=== PATIENT | female | born 1995 | race Caucasian/White ===

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

== ENCOUNTER 2017-01-14 09:51 | Emergency (ER) | payer OTHER ==
[2017-01-14] MEDS ORDERED: MACR100C2 PO (10:59)
--- NOTE | 2017-01-14 11:00 | PD ---
HPI Chief Complaint Contractions Date Seen: Jan 14, 2017 Travel History International Travel<30 Days: No Contact w/Intl Traveler<30Days: No History of Present Illness HPI 21 year old at 34/0 weeks presents with contractions. Patient states the contractions began 1 week prior, are irregular, have not increased in strength or frequency. No discharge of malodorous fluid, blood or other fluid from her vagina. She states she wanted to get an ultrasound today, however the ultrasound department was closed and referred her to the ED. Reports normal movement, no chest pain, abdominal pain (other than the occasional contractions), change in bowel habits, change in color/smell/frequency of urine or pain on urination. She states she has been following outpatient with V[facility]. Para: 0 : 2 Miscarriage: 1 : 0 History Past Medical History Medical History: Denies Significant Hx Past Surgical History Surgical History: No Previous Surgery Family History Family History: Negative Social History Alcohol Use: No Tobacco Use: No Substance Abuse: No Allergies-Medications (Allergen,Severity, Reaction): Coded Allergies: No Known Allergies (Verified , 11/08/16) Home Meds Active Scripts Nitrofurantoin Monohydrate Macrocrystals (Macrobid)100 Mg [id number] Mg PO BID #14 CAP Ref 0 Prov:Lico Rodriguez MD 01/14/17 Vit W/ Fe Polysacch C (Vitafol Fe+ 90-1-200 & 50 mg)1 Cap Cap1 Tab PO DAILY #30 BOTTLE Ref 11 Prov:Zarina Mcfadden [facility] 08/19/16 W/O Vit A W/ Fe Carbo Pack (Citranatal 90 Dha Pack)90-1 & 300 Mg Pack Sample #2 Prov:Mariaelena Galvez CNM [facility] 08/19/16 Review of Systems General / Constitutional: No: Fever, Chills Eyes: No: Diploplia, Blurred Vision, Visual changes, Pain, Photophobia HENT: No: Headaches, Vertigo, Lightheadedness Cardiovascular: No: Irregular Rhythm, Chest Pain or Discomfort, Palpitations, Tachycardia, Syncope Respiratory: No: Cough, Short of Breath, Wheezing Gastrointestinal: No: Nausea, Vomiting, Diarrhea, Abdominal Pain, Constipation , Changes in Bowel Habits, Indigestion Genitourinary: No: Urgency, Frequency, Dysuria, Nocturia, Hematuria, Decreased Urinary Output, Oliguria, Hesitancy, Dribbling, Incontinence, Pelvic Pain, Vaginal Bleeding Musculoskeletal: No: Limited ROM, Weakness, Cramping, Edema Skin: No Rash, No Itching, No Dryness Neurologic: No: Weakness, Dizziness, Syncope Psychiatric: No: Anxiety, Depression Endocrine: No: Heat Intolerance, Cold Intolerance Physical Exam Narrative GENERAL: Well-nourished, well-developed patient. SKIN: Warm and dry. HEAD: Normocephalic and atraumatic. EYES: No scleral icterus. No injection or drainage. ENT: No nasal drainage noted. Mucous membranes pink. Airway patent. NECK: Supple, trachea midline. No JVD. CARDIOVASCULAR: Regular rate and rhythm without murmurs, gallops, or rubs. RESPIRATORY: Breath sounds equal bilaterally. No accessory muscle use. ABDOMEN/GI: Abdomen soft, non-tender, bowel sounds present, no rebound, no guarding GENITOURINARY: External Genitalia: intact and normal in appearance Dilatation: 0 Effacement: 0 Station: -3 Presentation: Vertex Membranes: intact Uterine Contractions: irregular FHT's: Category: 1 Baseline: 140 Reactive: + Variability: moderate Decels: none EXTREMITIES: No cyanosis or edema. BACK: Nontender without obvious deformity. No CVA tenderness. NEUROLOGICAL: Awake and alert. Motor and sensory grossly within normal limits. Five out of 5 muscle strength in all muscle groups. Normal speech. Data Data Orders Urinalysis - C+S If Indicated (01/14/17 10:26) MDM Plan 21 year old at 34/0 weeks presents with irregular contractions, no ROM or advancement of labor. She states she needed an ultrasound but the department was closed today and advised her to come to the ED. -Patient reports and agrees to follow up with her routine Ultrasound this Tuesday. -States she will follow up with her outpatient obstetric care in the next 3 days -Advised to return to the OB ED for worsening contractions, large fluid discharge from below, any other signs of labor, reduced movement, new onset N/V/F/C, new moderate back pain or other signs of advancing infection. Asymptomatic UTI -Macrobid BID x 7 days -Monitor for advancing infection -F/U sensitivities d/w Dr. Yao, Dr. Stone Diagnosis Diagnosis: Primary Impression: Acute cystitis Qualified Code: N30.01 - Acute cystitis with hematuria Additional Impression: 34 weeks gestation of Disposition: 01 DISCHARGE HOME Condition: Stable Scripts Nitrofurantoin Monohydrate Macrocrystals (Macrobid)100 Mg [id number] Mg PO BID #14 CAP Ref 0 Prov:Lico Rodriguez MD R1 01/14/17 Lico Rodriguez MD R1 Jan 14, 2017 11:00
[2017-01-14 11:26] LABS: BACTERIA, URINE OCC /hpf; BLOOD, URINE NEG (NEG); COMMENT (UR) CULTURE INDICATED; CULTURE IF INDICATED CULTURE INDICATED; GLUCOSE,URINE NEG (NEG); KETONE, URINE NEG (NEG); NITRITE,URINE NEG (NEG); RENAL EPITHELIAL CELLS 2 /hpf; SQUAMOUS EPITHELIAL CELL URINE 9 /hpf (0-5); URINE COLOR YELLOW (YELLW/STRAW)
[2017-01-20] MEDS ORDERED: AMOX500T PO (15:22)
[2017-03-10] MEDS ORDERED: DEPO150I IM (15:11)
== END 2017-01-14 11:43 | disposition home or self-care (01) ==
LOC: HOBED 09:51
DX: O47.03 False labor before 37 completed weeks of gestation, third trimester (principal); O23.43 Unspecified infection of urinary tract in pregnancy, third trimester; B95.7 Other staphylococcus as the cause of diseases classified elsewhere; Z3A.34 34 weeks gestation of pregnancy
CPT/HCPCS: 59025; 81001; 86403; 87077; 87086; 87186; 99284

== ENCOUNTER 2017-02-18 18:00 | Inpatient (IN) | payer OTHER ==
[~2017-02-18] VITALS: Ht 154.9 cm; Wt 72.6 kg
[2017-02-18] MEDS ORDERED: LACTATED RINGER'S 1000 ML INJ 1,000 ML IV PRN (18:06)
[2017-02-18] MEDS ORDERED: SODIUM CHLOR 0.9% 1000 ML INJ 1,000 ML OTHER PRN (18:06)
[2017-02-18] MEDS ORDERED: ONDANSETRON HCL 4 MG/2 ML VIAL IV PRN (18:15)
[2017-02-18] MEDS ORDERED: SODIUM CHLORID 0.9% 500 ML INJ 500 ML IV PRN (18:15)
[2017-02-18] MEDS ORDERED: LIDOCAINE HCL 1% 50 ML VIAL I-DERMAL PRN (18:15)
[2017-02-18] MEDS ORDERED: MINERAL OIL 10 ML VIAL TOPICAL PRN (18:15)
[2017-02-18] MEDS ORDERED: OXYTOCIN 30 UNITS-500ML PREMIX 500 ML IV ONE (18:15)
[2017-02-18] MEDS ORDERED: SODIUM CHLORIDE 0.9% FLUSH 10 ML FLUSH IV FLUSH PRN (18:15)
[2017-02-18] MEDS ORDERED: CITRIC ACID-SODIUM CITRATE LIQ 30 ML UDC PO SCH (18:15)
[2017-02-18] MEDS ORDERED: MISOPROSTOL 25 MCG SUPP VAGINAL ONE (18:15)
[2017-02-18] MEDS ORDERED: LIDOCAINE HCL 1% 50 ML VIAL INFIL PRN (18:15)
--- NOTE | 2017-02-18 18:24 | HHI.HP ---
HPI Chief Complaint Scheduled induction Date Seen: Feb 18, 2017 Travel History International Travel<30 Days: No Contact w/Intl Traveler<30Days: No History of Present Illness HPI Ms. Lyon is a 21-year-old at 39/0 weeks gestation presenting for scheduled induction secondary to IUGR. Per chart review, ultrasound at 24 weeks showed IUGR for which [facility] recommended induction at 39 weeks . She reports no other complications during . She endorses good movement and denies any vaginal bleeding, discharge, dysuria, or loss of fluid. She currently has no other complaints and denies a complete review of systems. Of note patient also hypothyroid on initial laboratory evaluation, however was noncompliant in follow-up and taking medication. Per chart review patient is also GBS positive without allergies. Weeks Gestation: 39 Para: 0 : 2 History Past Medical History Medical History: Denies Significant Hx Obstetric History Obstetric History First - miscarriage Second - IUGR Past Surgical History Surgical History: No Previous Surgery Family History Narrative Family History HTN, otherwise negative Social History Alcohol Use: No Tobacco Use: No Substance Abuse: No Allergies-Medications (Allergen,Severity, Reaction): Coded Allergies: No Known Allergies (Verified , 02/16/17) Home Meds Active Scripts Vit W/ Fe Polysacch C (Vitafol Fe+ 90-1-200 & 50 mg) 1 Cap Cap, 1 TAB PO DAILY, #30 BOTTLE 11 Refills Prov:Zarina McfaddenP 08/19/16 W/O Vit A W/ Fe Carbo Pack (Citranatal 90 Dha Pack) 90-1 & 300 Mg Pack Prov:Mariaelena Galvez CNM [facility] 08/19/16 Discontinued Scripts Amoxicillin (Amoxicillin) 500 Mg Tab, 500 MG PO TID for Infection, #21 TAB 0 Refills Prov:Zarina McfaddenP 01/20/17 Review of Systems Except as stated in HPI: all other systems reviewed are Neg Physical Exam Narrative GENERAL: Well-nourished, well-developed patient. SKIN: Warm and dry. HEAD: Normocephalic and atraumatic. EYES: No scleral icterus. No injection or drainage. ENT: No nasal drainage noted. Mucous membranes pink. Airway patent. NECK: Supple, trachea midline. No JVD. CARDIOVASCULAR: Regular rate and rhythm without murmurs, gallops, or rubs. RESPIRATORY: Breath sounds equal bilaterally. No accessory muscle use. ABDOMEN/GI: Abdomen soft, non-tender, bowel sounds present, no rebound, no guarding Gravid to 39 GENITOURINARY: External Genitalia: intact and normal in appearance Cervix: [-] Dilatation: [-] Effacement: [-] Station: [-] Presentation: [-] Membranes: [intact or ruptured] Uterine Contractions: [-] FHT's: Category: [-] Baseline: [-] Reactive: [-] Variability: [-] Decels: [-] EXTREMITIES: No cyanosis or edema. BACK: Nontender without obvious deformity. No CVA tenderness. NEUROLOGICAL: Awake and alert. Motor and sensory grossly within normal limits. Five out of 5 muscle strength in all muscle groups. Normal speech. Caprini VTE Risk Assessment Caprini VTE Risk Assessment: Mod/High Risk (score >= 2) Caprini Risk Assessment Model Point Value = 1 Point Value = 2 Point Value = 3 Point Value = 5 Age 41-60 Minor surgery BMI > 25 kg/m2 Swollen legs Varicose veins or History of unexplained or recurrent spontaneous Oral contraceptives or hormone replacement Sepsis (< 1 month) Serious lung disease, including pneumonia (< 1 month) Abnormal pulmonary function Acute myocardial infarction Congestive heart failure (< 1 month) History of inflammatory bowel disease Medical patient at bed rest Age 61-74 Arthroscopic surgery Major open surgery (> 45 min) Laparoscopic surgery (> 45 min) Malignancy Confined to bed (> 72 hours) Immobilizing plaster cast Central venous access Age >= 75 History of VTE Family history of VTE Factor V Leiden Prothrombin [id number] Lupus anticoagulant Anticardiolipin antibodies Elevated serum homocysteine Heparin-induced thrombocytopenia Other congenital or acquired thrombophilia Stroke (< 1 month) Elective arthroplasty Hip, pelvis, or leg fracture Acute spinal cord injury (< 1 month) Prophylaxis Regimen Total Risk Factor Score Risk Level Prophylaxis Regimen 0-1 Low Early ambulation 2 Moderate Order ONE of the following: *Sequential Compression Device (SCD) *Heparin 5000 units SQ BID 3-4 Higher Order ONE of the following medications: *Heparin 5000 units SQ TID *Enoxaparin/Lovenox 40 mg SQ daily (WT < 150 kg, CrCl > 30 mL/min) *Enoxaparin/Lovenox 30 mg SQ daily (WT < 150 kg, CrCl > 10-29 mL/min) *Enoxaparin/Lovenox 30 mg SQ BID (WT < 150 kg, CrCl > 30 mL/min) AND/OR *Sequential Compression Device (SCD) 5 or more Highest Order ONE of the following medications: *Heparin 5000 units SQ TID (Preferred with Epidurals) *Enoxaparin/Lovenox 40 mg SQ daily (WT < 150 kg, CrCl > 30 mL/min) *Enoxaparin/Lovenox 30 mg SQ daily (WT < 150 kg, CrCl > 10-29 mL/min) *Enoxaparin/Lovenox 30 mg SQ BID (WT < 150 kg, CrCl > 30 mL/min) AND *Sequential Compression Device (SCD) Data Data Vital Signs Reviewed: Yes Orders Orders Admit To Inpatient (02/18/17 ) Code Status (02/18/17 18:06) Vital Signs (Adult) .Per protocol (02/18/17 18:06) Heart (02/18/17 18:06) Amnioinfusion (02/18/17 18:06) Urinary Catheter Management .ONCE (02/18/17 18:06) Diet Liquid (02/18/17 Dinner) Lactated Ringer's 1000 Ml Inj (Lr 1000 M (02/18/17 18:06) Lactated Ringer's 1000 Ml Inj (Lr 1000 M (02/18/17 18:06) Sodium Chlorid 0.9% 500 Ml Inj (Ns 500 M (02/18/17 18:15) Sodium Chlor 0.9% 1000 Ml Inj (Ns 1000 M (02/18/17 18:26) Lidocaine 1% Inj (50 Ml) (Xylocaine 1% I (02/18/17 18:15) Citric Acid-Sodium Citrate Liq (Bicitra (02/18/17 18:15) Ondansetron Inj (Zofran Inj) (02/18/17 18:15) Fentanyl Inj (Fentanyl Inj) (02/18/17 18:15) Fentanyl Inj (Fentanyl Inj) (02/18/17 18:15) Penicillin G Potassium Inj (Pfizerpen-G (02/18/17 18:15) Penicillin G Potassium Inj (Pfizerpen-G (02/18/17 22:15) Complete Blood Count With Diff (02/18/17 18:06) Hold Clot (02/18/17 18:06) Abo/Rh Blood Type (02/18/17 18:06) Urinalysis - C+S If Indicated (02/18/17 18:06) Resp Oxygen Non Rebreathe Mask (02/18/17 ) ^ Epidural / Intrathecal Infus (02/18/17 18:06) Oxytocin 30 Units-500ml Premix (Pitocin (02/18/17 18:15) Lidocaine 1% Inj (50 Ml) (Xylocaine 1% I (02/18/17 18:15) Light Mineral Oil (Muri-Lube Oil) (02/18/17 18:15) Admit To Inpatient (02/18/17 ) Activity Oob Ad Stephanie (02/18/17 18:06) ^ Labor Induction (02/18/17 18:06) ^ Vaginal Insert (02/18/17 18:06) ^ Vaginal Lavage (02/18/17 18:06) Heart (02/18/17 18:06) Sodium Chloride 0.9% Flush (Ns Flush) (02/18/17 21:00) Sodium Chloride 0.9% Flush (Ns Flush) (02/18/17 18:15) Sodium Chlor 0.9% 1000 Ml Inj (Ns 1000 M (02/18/17 18:06) Misoprostol Supp (Cytotec Supp) (02/18/17 18:15) Misoprostol Supp (Cytotec Supp) (02/18/17 22:15) Inpatient Certification (02/18/17 ) Specimen To Be Collected PRN (02/18/17 18:06) Group B Strep: Positive Assessment/Plan Problem List: (1) IUGR (intrauterine growth restriction) affecting care of mother ICD Codes: O36.5990 - Maternal care for other known or suspected poor growth, unspecified trimester, not applicable or unspecified Status: Acute (2) 39 weeks gestation of ICD Codes: Z3A.39 - 39 weeks gestation of Status: Acute Assessment and Plan Ms. Lyon is a 21-year-old at 39/0 weeks gestation presenting for scheduled induction secondary to IUGR. 1. IUP at 39 weeks gestation -Continue routine antepartum care -Encourage oral hydration -Continue vitamin 2. IUGR -MFM recommending induction at 39 weeks gestation, orders placed 3. Induction of labor -Orders placed for Cytotec cervical induction per protocol 4. GBS Positive -Penicillin G ordered per protocol SDW: Dr. Stone Discharge Planning Pending clinical course Tushar Marks MD R2 Feb 18, 2017 18:24
[2017-02-18] MEDS ORDERED: SODIUM CHLOR 0.9% 1000 ML INJ 1,000 ML IV PRN (18:26)
[2017-02-18] MEDS ORDERED: PENICILLIN G POTASSIUM INJ 5,000,000 UNITS in SODIUM CHLORIDE 0.9% INJ 100 ML IV ONE (19:00)
[2017-02-18 20:46] LABS: AUTOMATED NEUTROPHIL # 10.2 TH/MM3 (1.8-7.7); BASOPHIL # 0.1 TH/MM3 (0-0.2); BASOPHIL % 0.5 % (0.0-2.0); EOSINOPHIL # 0.6 TH/MM3 (0-0.4); EOSINOPHIL % 4.1 % (0.0-4.0); HEMATOCRIT 36.8 % (35.0-46.0); HEMO FLAGS DIFF FINAL; LYMPH % 19.5 % (9.0-44.0); LYMPHOCYTE # 2.9 TH/MM3 (1.0-4.8); MEAN CELL VOLUME 84.5 FL (80.0-100.0); MEAN CORPUSCULAR HEMOGLOBIN 27.5 PG (27.0-34.0); MEAN CORPUSCULAR HGB CONC 32.5 % (32.0-36.0); MONO % 8.2 % (0.0-8.0); NEUT % 67.7 % (16.0-70.0); PLATELET COUNT 280 TH/MM3 (150-450); RED BLOOD COUNT 4.35 MIL/MM3 (4.00-5.30); RED CELL DISTRIBUTION WIDTH 12.8 % (11.6-17.2)
[2017-02-18] MEDS: LACTATED RINGER'S 1000 ML INJ 1,000 ML IV SCH (21:06)
[2017-02-18 21:25] LABS: BLOOD, URINE NEG (NEG); COMMENT (UR) CULT NOT INDICATED; CULTURE IF INDICATED CULT NOT INDICATED; GLUCOSE,URINE NEG (NEG); KETONE, URINE NEG (NEG); NITRITE,URINE NEG (NEG); PH, URINE 7.5 (5.0-8.5); SQUAMOUS EPITHELIAL CELL URINE 4 /hpf (0-5); URINE COLOR LIGHT-YELLOW (YELLW/STRAW)
[2017-02-18] MEDS: PENICILLIN G POTASSIUM INJ 2,500,000 UNITS in SODIUM CHLORIDE 0.9% INJ 100 ML IV SCH (23:00)
[2017-02-19] MEDS: MISOPROSTOL 25 MCG SUPP VAGINAL PRN ×3 (01:12→14:20)
[2017-02-19] MEDS: PENICILLIN G POTASSIUM INJ 2,500,000 UNITS in SODIUM CHLORIDE 0.9% INJ 100 ML IV SCH ×4 (03:00→23:00)
[2017-02-19] MEDS: SODIUM CHLORIDE 0.9% FLUSH 10 ML FLUSH IV FLUSH SCH ×2 (09:00→21:00)
[2017-02-19] MEDS: PRENATAL VITAMIN CHEWABLE TAB PO SCH (09:00)
[2017-02-19] MEDS: LACTATED RINGER'S 1000 ML INJ 1,000 ML IV SCH ×2 (10:06→23:21)
--- NOTE | 2017-02-19 12:49 | PD.LABORPN ---
Subjective Subjective Patient is resting comfortably Objective Objective Pelvic Exam: Deferred FHT's: heart tones are in the 130s with moderate long-term variability, good accelerations, no decelerations with category 1 heart rate tracing [place]: We'll reassess after patient completes shower Weeks Gestation: 39 Gest Age Assessed Date: Feb 19, 2017 Gest Age Assessed Time: 12:47 Pt started active labor?: No Medical induction of labor?: Yes Medical induction start date: Feb 18, 2017 Medical induction start time: 20:00 Artificial rupture of membrane: No Assessment/Plan Problem List: (1) IUGR (intrauterine growth restriction) affecting care of mother ICD Codes: O36.5990 - Maternal care for other known or suspected poor growth, unspecified trimester, not applicable or unspecified Status: Acute (2) 39 weeks gestation of ICD Codes: Z3A.39 - 39 weeks gestation of Status: Acute Assessment and Plan Assessment/plan: 1. IUP at 39.1 2. Induction of labor for IUGR: Status post Cytotec 3 3. GBS positive 4. Reassuring testing with category 1 heart rate tracing, will continue Zarina Ayala MD Feb 19, 2017 12:49
[2017-02-19] MEDS ORDERED: DINOPROSTONE 10 MG VAG INSERT VAGINAL ONE (19:45)
[2017-02-19] MEDS ORDERED: ZOLPIDEM TARTRATE 5 MG TAB PO PRN (23:00)
[2017-02-20] MEDS: LACTATED RINGER'S 1000 ML INJ 1,000 ML IV SCH ×3 (02:06→19:39)
[2017-02-20] MEDS: PENICILLIN G POTASSIUM INJ 2,500,000 UNITS in SODIUM CHLORIDE 0.9% INJ 100 ML IV SCH ×8 (03:00→22:49)
[2017-02-20] MEDS: SODIUM CHLORIDE 0.9% FLUSH 10 ML FLUSH IV FLUSH SCH ×2 (09:54→21:00)
[2017-02-20] MEDS: PRENATAL VITAMIN CHEWABLE TAB PO SCH (09:54)
[2017-02-20] MEDS ORDERED: OXYTOCIN 30 UNITS-500ML PREMIX 500 ML IV SCH (10:00)
--- NOTE | 2017-02-20 10:20 | PD.LABORPN ---
Subjective Subjective AROM -clear , IUPC FSE inserted FHT reactive , CTXs reg on pit cx 1/50/-3 /vtx will monitor progress , entire plan of management and care explained to pt Objective Objective Pelvic Exam: Cervix: [-1] Dilatation: [1-] Effacement: [50-] Station: [-3] Presentation: [-] Membranes: ruptured]AROM Uterine Contractions: [reg-] FHT's: Category: [-1] Baseline: [-133] Reactive: [-yes] Variability: [-mod] Decels: [-none] Weeks Gestation: 39 Gest Age Assessed Date: Feb 19, 2017 Gest Age Assessed Time: 12:47 Pt started active labor?: No Medical induction of labor?: Yes Medical induction start date: Feb 18, 2017 Medical induction start time: 20:00 Artificial rupture of membrane: No Artificial ROM date: Feb 20, 2017 Artifical ROM time: 10:10 Assessment/Plan Problem List: (1) IUGR (intrauterine growth restriction) affecting care of mother ICD Codes: O36.5990 - Maternal care for other known or suspected poor growth, unspecified trimester, not applicable or unspecified Status: Acute (2) 39 weeks gestation of ICD Codes: Z3A.39 - 39 weeks gestation of Status: Acute Vic Stone II, MD Feb 20, 2017 10:20
[2017-02-20] MEDS ORDERED: AMPICILLIN 2 GM/NS 100 ML IV SCH ×2 (23:00)
[2017-02-20] MEDS: AMPICILLIN 2 GM/NS 100 ML IV SCH ×2 (23:33)
[2017-02-20] MEDS: GENTAMICIN/SOD CHL 80 MG/100 ML IV SCH (23:55)
[2017-02-21] MEDS ORDERED: fentaNYL 2MCG-BUPIV 0.125% INJ 100 ML ONE (00:32)
[2017-02-21] MEDS ORDERED: NO SYSTEM NARCOTICS PRN (01:30)
[2017-02-21] MEDS ORDERED: DO NOT ADMINISTER ANTICOAGULANTS PRN (01:30)
[2017-02-21] MEDS ORDERED: fentaNYL 2MCG-BUPIV 0.125% 100 ML EPIDURAL SCH (01:30)
[2017-02-21] MEDS ORDERED: ePHEDrine/NS 25 MG/5 ML SYR IV PRN (01:30)
[2017-02-21] MEDS ORDERED: diphenhydrAMINE HCL 50 MG/ML VIAL IV ONE (02:45)
[2017-02-21] MEDS: LACTATED RINGER'S 1000 ML INJ 1,000 ML IV SCH (02:51)
[2017-02-21] MEDS: PENICILLIN G POTASSIUM INJ 2,500,000 UNITS in SODIUM CHLORIDE 0.9% INJ 100 ML IV SCH (02:59)
--- NOTE | 2017-02-21 04:47 | PD.LABORPN ---
Subjective Subjective OB progress note Patient prolonged latent phase now in the active phase. She is 6-7 cm /100/+1 , contractions are regular. Also on IV ampicillin gentamicin for chorioamnionitis with a temperature spike of 100.9 Currently on Pitocin with IUPC and scalp electrode in place heart rate tracing has shown a decrease in the variability and somewhat an elevation in the Baseline heart rate 160, approximately 30 minutes ago the patient had a short run of late decelerations fairly subtle that resolved. I just examined the patient to scalp stimulation to get heart rate acceleration with that maneuver and with that acceleration baby should not be in an acidotic state. Therefore allow the patient to labor for 1 more hour at that time she needs to be able to be complete and pushing or it would be time for section for delivery. This was all explained to the patient Objective Vital Signs Vital Signs Date Time Temp Pulse Resp B/P (MAP) Pulse Ox O2 Delivery O2 Flow Rate FiO2 02/21/17 01:54 20 Objective Pelvic Exam: Cervix: [-] Dilatation: [-6-7] Effacement: [-100] Station: [+1 Presentation: [vtx-] Membranes: ruptured] Uterine Contractions: [reg-] FHT's: Category: [-2] Baseline: [-160] Reactive: [no-] Variability: [-minimal at times moderate] Decels: [occasional late decel-] Weeks Gestation: 39 Gest Age Assessed Date: Feb 19, 2017 Gest Age Assessed Time: 12:47 Pt started active labor?: No Medical induction of labor?: Yes Medical induction start date: Feb 18, 2017 Medical induction start time: 20:00 Artificial rupture of membrane: No Artificial ROM date: Feb 20, 2017 Artifical ROM time: 10:10 Assessment/Plan Problem List: (1) IUGR (intrauterine growth restriction) affecting care of mother ICD Codes: O36.5990 - Maternal care for other known or suspected poor growth, unspecified trimester, not applicable or unspecified Status: Acute (2) 39 weeks gestation of ICD Codes: Z3A.39 - 39 weeks gestation of Status: Acute Vic Stone II, MD Feb 21, 2017 04:47
[2017-02-21] MEDS ORDERED: ACETAMINOPHEN 1000 MG/100 ML 100 ML IV ONE (05:39)
[2017-02-21 06:20] LABS: BLOOD GAS O2 HGB SATURATION 71 % (90-100); CORD BLOOD GAS HCO3 21 mmol/L (21-29); CORD BLOOD GAS PCO2 33 mmHG (34-78); CORD BLOOD GAS PH 7.42 (7.14-7.42); CORD BLOOD GAS PO2 32 mmHG (3.0-40.0); DRAW SITE CBG
[2017-02-21 06:21] LABS: STAT NO
--- NOTE | 2017-02-21 07:30 | MP ---
cc: RADHA STONE MD DATE OF SURGERY 02/21/2017 PREOPERATIVE DIAGNOSES Failure to progress. Category II heart rate tracing. POSTOPERATIVE DIAGNOSES Failure to progress. Category II heart rate tracing. Persistent OP. PROCEDURE PERFORMED Primary low transverse section. SURGEON Radha Stone MD ANESTHESIA Epidural. PREOP NOTE The patient is a 21-year-old , , being induced for IUGR at 39 weeks. She had a prolonged latent phase of labor, entered the active phase, achieved dilation of 6-7 cm and did not make progress beyond that point. heart rate tracing was a Category II with minimal variability, occasional late deceleration and felt that could no longer watch the tracing in spite of lack of cervical progress, so section was opted for. PROCEDURE The patient was taken to the operating room and placed in the supine position on the operating room table. After adequate epidural anesthesia was administered, she was prepped and draped for abdominal surgery. A Pfannenstiel incision was made in the lower abdomen, carried to the fascia sharply. The fascia was dissected off the rectus muscle and the rectus split in the midline, the peritoneal cavity entered sharply. The incision was extended superiorly and inferiorly, a bladder blade placed in the lower edge of the incision. The visceral peritoneum was reflected off the lower uterine segment and placed under bladder blade. A transverse hysterotomy was made and extended bluntly bilaterally, clear fluid noted. A female infant, weight 2650 grams, was delivered at 6:05 a.m., Apgars of 9 and 9, cord pH 7.42. There were no complications at delivery. Cord blood obtained. Placenta manually extracted and cultured. The uterus is then cultured as well, placenta sent to pathology. The hysterotomy was closed with a running layer of 0 chromic followed by imbricating suture of the same. Hemostasis was achieved. The bladder was reapproximated with 2-0 Vicryl in a running suture. The ovaries and tubes on both sides were normal. The uterus was elevated and blood suctioned to the cul-de-sac and gutter. The pelvic was irrigated with normal saline. The uterus was replaced in the peritoneal cavity. The parietal peritoneum was closed in a running layer of 2-0 Vicryl. The muscle was reapproximated with stick ties of 0 chromic. The fascia was closed in a running layer of 0 Vicryl. The skin was closed with 3-0 Monocryl subcuticular stitch and pressure dressing was applied. The estimated blood loss was 500 cc. There were no complications. Sponge, needle and instrument counts were correct x 2 and the patient went to Recovery in stable condition. MD JEFFERSON Ocampo/SUMMER /6:47 AM /7:17 AM
[2017-02-21] MEDS ORDERED: MORPHINE SULFATE 4 MG/ML INJ IV PUSH PRN (07:45)
[2017-02-21] MEDS ORDERED: OXYTOCIN 30 UNITS-500ML PREMIX 500 ML IV ONE (07:45)
[2017-02-21] MEDS ORDERED: SIMETHICONE 80 MG CHEWABLE TAB PO PRN (07:45)
[2017-02-21] MEDS ORDERED: DOCUSATE SODIUM 50 MG/SENNA 8.6 MG TAB PO PRN (07:45)
[2017-02-21] MEDS ORDERED: ZOLPIDEM TARTRATE 5 MG TAB PO PRN (07:45)
[2017-02-21] MEDS ORDERED: KETOROLAC TROMETHAMINE 60 MG/2 ML (IM) VIAL IM PRN ×2 (07:45)
[2017-02-21] MEDS ORDERED: ONDANSETRON HCL 4 MG/2 ML VIAL IV PUSH PRN (07:45)
[2017-02-21] MEDS ORDERED: SODIUM CHLORIDE 0.9% FLUSH 10 ML FLUSH IV FLUSH PRN (07:45)
[2017-02-21] MEDS ORDERED: oxyCODONE/ACETAMINOPHEN 5 MG/325 MG TAB PO PRN (07:45)
[2017-02-21] MEDS ORDERED: ACETAMINOPHEN 325 MG TAB PO PRN (07:45)
[2017-02-21] MEDS ORDERED: SODIUM CHLORIDE 0.9% FLUSH 10 ML FLUSH IV FLUSH SCH (09:00)
[2017-02-21] MEDS ORDERED: MORPHINE SULFATE PF 5 MG/10 ML VIAL EPIDURAL ONE (12:00)
[2017-02-21] MEDS ORDERED: LIDOCAINE 2%/EPINEPHrine PF 1:200,000 20ML SDV INFIL ONE (12:00)
[2017-02-21] MEDS ORDERED: OXYTOCIN 10 UNIT/ML AMP IV ONE (12:00)
[2017-02-21] MEDS ORDERED: ONDANSETRON HCL 4 MG/2 ML VIAL IV PUSH ONE (12:00)
[2017-02-21] MEDS ORDERED: PHENYLEPH/NS 1000 MCG/10 ML SYR IV ONE (12:00)
[2017-02-21] MEDS ORDERED: LACTATED RINGER'S 1000 ML INJ 1,000 ML IV ONE (12:00)
[2017-02-21] MEDS ORDERED: LACTATED RINGER'S 1000 ML INJ 1,000 ML IV SCH (12:39)
[2017-02-21] MEDS: oxyCODONE/ACETAMINOPHEN 5 MG/325 MG TAB PO PRN ×2 (17:11→18:17)
[2017-02-21] MEDS: IBUPROFEN 600 MG TAB PO PRN (17:11)
[2017-02-21] MEDS ORDERED: OXYTOCIN 30 UNITS-500ML PREMIX 500 ML IV PRN (17:45)
[2017-02-22] MEDS: oxyCODONE/ACETAMINOPHEN 5 MG/325 MG TAB PO PRN ×3 (03:41→20:24)
[2017-02-22] MEDS: IBUPROFEN 600 MG TAB PO PRN ×3 (03:42→20:23)
[2017-02-22 06:02] LABS: AUTOMATED NEUTROPHIL # 14.4 TH/MM3 (1.8-7.7); BASOPHIL # 0.1 TH/MM3 (0-0.2); BASOPHIL % 0.4 % (0.0-2.0); EOSINOPHIL # 0.4 TH/MM3 (0-0.4); HEMATOCRIT 28.6 % (35.0-46.0); HEMO FLAGS DIFF FINAL; LYMPH % 12.7 % (9.0-44.0); LYMPHOCYTE # 2.3 TH/MM3 (1.0-4.8); MEAN CORPUSCULAR HEMOGLOBIN 27.8 PG (27.0-34.0); MEAN CORPUSCULAR HGB CONC 32.7 % (32.0-36.0); MONO % 6.7 % (0.0-8.0); NEUT % 78.2 % (16.0-70.0); PLATELET COUNT 263 TH/MM3 (150-450); RED BLOOD COUNT 3.36 MIL/MM3 (4.00-5.30); RED CELL DISTRIBUTION WIDTH 13.2 % (11.6-17.2); WHITE BLOOD COUNT 18.4 TH/MM3 (4.0-11.0)
--- NOTE | 2017-02-22 14:17 | HHI.OB ---
Subjective Post Day: 1 Remarks day #1. AFVSS overnight. Pain minimal. Decreased lochia. Denies dysuria. No breast tenderness. She is feeding the baby via breast. Appetite good. No nausea or vomiting. No flatus. No bowel movement. Ambulating well. Denies calf pain, shortness of breath, or cough. Otherwise, she is doing well this morning and has no other complaints. Objective Vitals/I&O Vital Signs Date Time Temp Pulse Resp B/P (MAP) Pulse Ox O2 Delivery O2 Flow Rate FiO2 02/21/17 01:54 20 Objective Remarks GENERAL: Well-nourished, well-developed patient. CARDIOVASCULAR: Regular rate and rhythm without murmurs, gallops, or rubs. RESPIRATORY: Breath sounds equal bilaterally. No accessory muscle use. ABDOMEN/GI: Abdomen soft, non-tender. Fundus: Firm, non-tender at umbilicus. Incision site clean dry and intact GENITOURINARY: Light to moderate bleeding. EXTREMITIES: No cyanosis or edema, non-tender, without signs of DVT. Medications and IVs Current Medications Medications (Trade) Dose Ordered Sig/Davis Route Start Time Stop Time Status Last Admin Lactated Ringer's 1,000 ml @ 125 mls/hr Q8H IV 02/18/17 18:06 02/21/17 02:51 Lactated Ringer's 1,000 ml @ 3,000 mls/hr Q20M PRN IV 02/18/17 18:06 02/21/17 00:34 Sodium Chloride 1,000 ml @ 100 mls/hr Q10H PRN IV 02/18/17 18:26 (Bicitra Liq) 30 ml CORNETIST PO 02/18/17 18:15 02/22/17 18:14 (fentaNYL INJ) 50 mcg Q1H PRN IV PUSH 02/18/17 18:15 (fentaNYL INJ) 100 mcg Q1H PRN IV PUSH 02/18/17 18:15 02/20/17 22:50 (Muri-Lube Oil) 10 ml UNSCH PRN TOPICAL 02/18/17 18:15 Non-Formulary Medication 1 tab DAILY PO 02/19/17 09:00 UNV Oxytocin 500 ml @ 2 mls/hr TITRATE IV 02/20/17 10:00 02/20/17 09:56 Penicillin G Potassium 1912125 units/Sodium Chloride 100 ml @ 200 mls/hr Q4H IV 02/20/17 15:00 02/21/17 02:59 Gentamicin Sulfate/Sodium Chloride 100 ml @ 200 mls/hr Q8H IV 02/20/17 23:00 02/20/17 23:55 Ampicillin Sodium 2000 mg/Sodium Chloride 100 ml @ 300 mls/hr Q6H IV 02/21/17 00:00 02/20/17 23:33 Fentanyl/ Bupivacaine HCl 100 ml @ 0 mls/hr TITRATE EPIDURAL 02/21/17 01:30 02/21/17 01:54 Oxytocin 500 ml @ 100 mls/hr UNSCH X1 PRN IV 02/21/17 17:45 02/22/17 17:44 (NS Flush) 2 ml BID IV FLUSH 02/21/17 09:00 (NS Flush) 2 ml UNSCH PRN IV FLUSH 02/21/17 07:45 (Mylicon Chew) 80 mg QID PRN PO 02/21/17 07:45 (Tylenol) 650 mg Q6H PRN PO 02/21/17 07:45 (Motrin) 600 mg Q6H PRN PO 02/21/17 07:45 02/22/17 13:38 (Percocet 5-325 Mg) 1 tab Q4H PRN PO 02/21/17 07:45 02/22/17 03:41 (Percocet 5-325 Mg) 2 tab Q4H PRN PO 02/21/17 07:45 02/22/17 13:38 (Melissa-Colace) 2 tab Q12H PRN PO 02/21/17 07:45 02/21/17 17:11 (Ambien) 5 mg HS PRN PO 02/21/17 07:45 (M-M-R Ii Inj) 0.5 ml ONCE ONCE SQ 02/22/17 16:00 02/22/17 16:01 (Boostrix Inj) 0.5 ml ONCE ONCE IM 02/22/17 16:00 02/22/17 16:01 02/22/17 00:29 (Zofran Inj) 4 mg Q6H PRN IV PUSH 02/21/17 07:45 (Morphine Inj) 4 mg Q3H PRN IV PUSH 9/25/17 07:45 Assessment/Plan Problem List: (1) IUGR (intrauterine growth restriction) affecting care of mother ICD Codes: O36.5990 - Maternal care for other known or suspected poor growth, unspecified trimester, not applicable or unspecified Status: Resolved (2) 39 weeks gestation of ICD Codes: Z3A.39 - 39 weeks gestation of Status: Acute Assessment and Plan Ms. Lyon is a 21-year-old D1 s/p C/S (failure to progress) -Continue routine care. -Percocet and Motrin PRN pain. -Encouraged OOB. Advised pelvic rest for 6 wks. Will need a f/u appt. in 1 wk for incision check. -D/c in 1 more day wdw OB attending Discharge Planning Likely tomorrow Nkechi Black MD R1 Feb 22, 2017 14:17
[2017-02-22] MEDS ORDERED: MEASLES, MUMPS, RUBELLA VACCINE 0.5 ML VIAL SQ ONE (16:00)
[2017-02-22] MEDS ORDERED: DIPHTH/TETANUS/ACEL PERTUSSIS (BOOSTER) 0.5 ML VIAL/PFS IM ONE (16:00)
[2017-02-23] MEDS: oxyCODONE/ACETAMINOPHEN 5 MG/325 MG TAB PO PRN (05:15)
[2017-02-23] MEDS: IBUPROFEN 600 MG TAB PO PRN (05:15)
[2017-02-23] MEDS: GENTAMICIN/SOD CHL 80 MG/100 ML IV SCH (07:00)
[2017-02-23 07:50] VITALS: BP 106/60; PULSE 98; RESP 16; TEMP 98.6
[2017-02-23] MEDS: PRENATAL VITAMIN CHEWABLE TAB PO SCH (08:22)
--- NOTE | 2017-02-23 09:41 | HHI.OB ---
Subjective Post Operative Day: 2 Remarks Postoperative day number 2. AFVSS overnight. Pain minimal. Incision not draining. Decreased lochia. Denies dysuria. No breast tenderness. She is feeding the baby via breast. Appetite good. No nausea or vomiting. Endorses flatus. No bowel movement, afraid to go due to pain. Ambulating well. Denies calf pain, shortness of breath, or cough. Otherwise, she is doing well this morning and has no other complaints. Objective Result Diagram: 02/22/17 0403 Objective Remarks GENERAL: Well-nourished, well-developed patient. CARDIOVASCULAR: Regular rate and rhythm without murmurs, gallops, or rubs. RESPIRATORY: Breath sounds equal bilaterally. No accessory muscle use. ABDOMEN/GI: Abdomen soft, non-tender, bowel sounds present. Incision: Clean, dry and intact. Fundus: Firm, non-tender at umbilicus. GENITOURINARY: Light to moderate bleeding. EXTREMITIES: No cyanosis or edema, non-tender, without signs of DVT. Medications and IVs Current Medications Medications (Trade) Dose Ordered Sig/Davis Route Start Time Stop Time Status Last Admin Lactated Ringer's 1,000 ml @ 125 mls/hr Q8H IV 02/18/17 18:06 02/21/17 02:51 Lactated Ringer's 1,000 ml @ 3,000 mls/hr Q20M PRN IV 02/18/17 18:06 02/21/17 00:34 Sodium Chloride 1,000 ml @ 100 mls/hr Q10H PRN IV 02/18/17 18:26 (fentaNYL INJ) 50 mcg Q1H PRN IV PUSH 02/18/17 18:15 (fentaNYL INJ) 100 mcg Q1H PRN IV PUSH 02/18/17 18:15 02/20/17 22:50 (Muri-Lube Oil) 10 ml UNSCH PRN TOPICAL 02/18/17 18:15 Non-Formulary Medication 1 tab DAILY PO 02/19/17 09:00 UNV Oxytocin 500 ml @ 2 mls/hr TITRATE IV 02/20/17 10:00 02/20/17 09:56 Penicillin G Potassium 6887244 units/Sodium Chloride 100 ml @ 200 mls/hr Q4H IV 02/20/17 15:00 02/21/17 02:59 Gentamicin Sulfate/Sodium Chloride 100 ml @ 200 mls/hr Q8H IV 02/20/17 23:00 02/20/17 23:55 Ampicillin Sodium 2000 mg/Sodium Chloride 100 ml @ 300 mls/hr Q6H IV 02/21/17 00:00 02/20/17 23:33 Fentanyl/ Bupivacaine HCl 100 ml @ 0 mls/hr TITRATE EPIDURAL 02/21/17 01:30 02/21/17 01:54 (NS Flush) 2 ml BID IV FLUSH 02/21/17 09:00 (NS Flush) 2 ml UNSCH PRN IV FLUSH 02/21/17 07:45 (Mylicon Chew) 80 mg QID PRN PO 02/21/17 07:45 (Tylenol) 650 mg Q6H PRN PO 02/21/17 07:45 (Motrin) 600 mg Q6H PRN PO 02/21/17 07:45 02/23/17 05:15 (Percocet 5-325 Mg) 1 tab Q4H PRN PO 02/21/17 07:45 02/22/17 03:41 (Percocet 5-325 Mg) 2 tab Q4H PRN PO 02/21/17 07:45 02/23/17 05:15 (Melissa-Colace) 2 tab Q12H PRN PO 02/21/17 07:45 02/21/17 17:11 (Ambien) 5 mg HS PRN PO 02/21/17 07:45 (Zofran Inj) 4 mg Q6H PRN IV PUSH 02/21/17 07:45 (Morphine Inj) 4 mg Q3H PRN IV PUSH 02/21/17 07:45 Assessment/Plan Problem List: (1) IUGR (intrauterine growth restriction) affecting care of mother ICD Codes: O36.5990 - Maternal care for other known or suspected poor growth, unspecified trimester, not applicable or unspecified Status: Resolved (2) 39 weeks gestation of ICD Codes: Z3A.39 - 39 weeks gestation of Status: Acute Assessment and Plan Ms. Lyon is a 21-year-old POD#1 s/p C/S (failure to progress) -Continue routine care. -Percocet and Motrin PRN pain. -Encouraged OOB. Advised pelvic rest for 6 wks. Will need a f/u appt. in 1 wk for incision check. -D/c today dw OB attending Fernando Wagner MD, R2 Feb 23, 2017 09:41
[2017-02-23] MEDS ORDERED: IBUP-232 PO (09:42)
[2017-02-23] MEDS ORDERED: OXYC1TAB63 PO (09:42)
[2017-02-23] MEDS ORDERED: SENN1TAB PO (09:42)
--- NOTE | 2017-02-23 09:43 | HHI.DCPOC ---
Discharge Care Plan Diagnosis: (1) Delivered by section Report Symptoms to Your Doctor -Temperature above 100.5 degrees -Redness, of incision or excessive or foul smelling drainage -Unusual pain or calf pain -Increased vaginal bleeding -Painful or difficulty urinating -Feelings of extreme sadness or anxiety after 2 weeks Goals to Promote Your Health * To prevent worsening of your condition and complications * To maintain your health at the optimal level Directions to Meet Your Goals Take your medications as prescribed Follow your dietary instruction Follow activity as directed Ensure plenty of rest for recovery Drink fluids for hydration Keep your appointments as scheduled Take your immunizations and boosters as scheduled If your symptoms worsen call your PCP, if no PCP go to Urgent Care Center or Emergency Room Smoking is Dangerous to Your Health. Avoid second hand smoke Call the 24-hour crisis hotline for domestic abuse at Fernando Wagner MD, R2 Feb 23, 2017 09:43
[2017-02-23] MEDS: LACTATED RINGER'S 1000 ML INJ 1,000 ML IV SCH (10:06)
[2017-02-23] MEDS: PENICILLIN G POTASSIUM INJ 2,500,000 UNITS in SODIUM CHLORIDE 0.9% INJ 100 ML IV SCH (11:00)
[2017-02-23] MEDS: AMPICILLIN 2 GM/NS 100 ML IV SCH ×2 (11:39)
[2017-03-10] MEDS ORDERED: DEPO150I IM (15:11)
== END 2017-02-23 13:34 | disposition home or self-care (01) | DRG 765 ==
LOC: H2EB 18:00 → H2EA 18:05 → H1EA 02-21 08:11
PROVIDERS: ADMIT Obstetrics & Gynecology Maternal & Fetal Medicine; ATTEND Obstetrics & Gynecology Maternal & Fetal Medicine
PROC: 3E0P7GC Introduction of Other Therapeutic Substance into Female Reproductive, Via Natural or Artificial Opening (ICD-10-PCS; 2017-02-18)
PROC: 10907ZC Drainage of Amniotic Fluid, Therapeutic from Products of Conception, Via Natural or Artificial Opening (ICD-10-PCS; 2017-02-20)
PROC: 10H07YZ Insertion of Other Device into Products of Conception, Via Natural or Artificial Opening (ICD-10-PCS; 2017-02-20)
PROC: 10D00Z1 Extraction of Products of Conception, Low, Open Approach (ICD-10-PCS; principal; 2017-02-21)
DX: O36.5930 Maternal care for other known or suspected poor fetal growth, third trimester, not applicable or unspecified (principal); O41.1230 Chorioamnionitis, third trimester, not applicable or unspecified; E03.9 Hypothyroidism, unspecified; O99.284 Endocrine, nutritional and metabolic diseases complicating childbirth; O99.824 Streptococcus B carrier state complicating childbirth; Z37.0 Single live birth; Z3A.39 39 weeks gestation of pregnancy; O76 Abnormality in fetal heart rate and rhythm complicating labor and delivery; O63.0 Prolonged first stage (of labor); Z91.19 Patient's noncompliance with other medical treatment and regimen; O62.2 Other uterine inertia
CPT/HCPCS: 59025; 81001; 82805; 85025; 86900; 86901; 87070; 88307; 90715; J0131; J0290; J0690; J1200; J1580; J1885; J2274; J2370; J2405; J2540; J2590; J3010; J7120